=== PATIENT | female | born 1985 | race Two or more races ===

== ENCOUNTER 2025-06-09 18:24 | Emergency (ER) | payer MEDICAID, OTHER ==
[~2025-06-09] VITALS: Ht 170.2 cm; Wt 89.4 kg
[2025-06-09 18:45] VITALS: PULSE 58; RESP 22; O2SAT 98
[2025-06-09] MEDS: ONDANSETRON HCL 4 MG/2 ML VIAL IV ONE (19:00)
[2025-06-09] MEDS: HYDROmorphone HCL 2 MG/ML VL/or syr IV ONE (19:04)
[2025-06-09 19:10] VITALS: PULSE 96; RESP 24; TEMP 97.6; O2SAT 100
--- NOTE | 2025-06-09 19:24 | ED.PDOC ---
History of Present Illness HPI Comments 39 y/o F presents with friend for c/c of right shoulder and arm pain, with associated limited range of motion. Patient reports on history of previous right shoulder dislocation in the past and endorses on dislocating said shoulder, again, after working out with her friend at the gym, earlier, today. Denial of any numbness, tingling, or further associated symptoms. Chief Complaint: Upper Extremity Time Seen by MD: 18:45 Reviewed Notes: Nurses Notes, Medications, Allergies Allergies: Coded Allergies: NO KNOWN ALLERGIES (Unverified , 06/09/25) Information Source: Patient Mode of Arrival: Ambulatory Severity: Moderate Timing: Hours Duration: Since onset Prehospital treatment: None Past Medical History Past Medical History (Other): Previous right shoulder dislocation Surgical History: Denies all surgeries [employer] History: Denies all [employer] Hx Family History Family History: Reviewed,noncontributory to illness, No family hx of Cancer, No family hx of DM, No family hx of Heart lacey, No family hx of HTN, No family hx ofKidney lacey, No family hx of Liver lacey, No family hx of Lung lacey, No family hx of Stroke Social History Smoker: Non-Smoker Alcohol: Denies ETOH Use Drugs: Denies Drug Use Lives In: Home All Other Systems: Reviewed and Negative (Comprehensive systems review obtained and negative except for what is stated in the HPI.) Physical Exam General Appearance: Moderate Distress HEENT: Normal ENT Inspection, Pharynx Normal, TMs Normal Neck: Full Range of Motion, Non-Tender, Normal, Normal Inspection Respiratory: Chest Non-Tender, Lungs Clear, No Accessory Muscle Use, No Respiratory Distress, Normal Breath Sounds Cardiovascular: No Edema, No JVD, No Murmur, No Gallop, Normal Peripheral Pulses, Regular Rate/Rhythm Breast Exam: Deferred Gastrointestinal: No Organomegaly, Non Tender, No Pulsatile Mass, Normal Bowel Sounds, Soft Genitalia: Deferred Pelvic: Deferred Rectal: Deferred Extremities: Decreased range of motion (Right upper extremity) Musculoskeletal : Apperance: Normal Neurologic: Alert, No Motor Deficits, No Sensory Deficits Cerebellar Function: NOT DONE Reflexes: NOT DONE Skin: Normal Color Peripheral Pulses: 3+ Radial (R), 3+ Radial (L) Lymphatic: No Adenopathy Was a procedure done? Was a procedure done?: No Reduction Indication: Dislocation Sedation: Consents obtained, Sedation as ordered, Other (right shoulder ) Intra-articular anesthetic kathi: No Post-reduction x-ray show: Reduction, Good Alignment Informed consent obtained: Yes Risks/benefits/alt described: Yes Differential Dx Considerations may include: dislocation, sprain, contusion, fracture, among others X-Ray, Labs, Meds, VS Vital Signs Date Time Temp Pulse Resp B/P (MAP) Pulse Ox O2 Delivery O2 Flow Rate FiO2 06/09/25 20:10 62 27 100 4.0 102 14 100 62 100 06/09/25 19:10 96 24 100 Room Air* 0 21 06/09/25 19:10 97.6 96 24 152/84 (106) 100 97.6 06/09/25 19:04 58 22 152/84 06/09/25 18:45 98.6 58 22 98 98.6 06/09/25 18:45 58 22 98 Room Air* 0 21 06/09/25 18:26 97.4 75 16 122/71 97 97.4 Current Medications Medications (Trade) Dose Ordered Sig/Miguel Route Start Time Stop Time Status Last Admin Hydromorphone HCl (Dilaudid Injection) 2 mg ONCE ONCE IV 06/09/25 19:00 06/09/25 19:01 DC 06/09/25 19:04 [place] [address] Ph: [phone] DIAGNOSTIC IMAGING Diagnostic Imaging Report : [id number] Signed PATIENT: LYLE STRATTON ACCT: [id number] UNIT: [id number] : 1985 LOC: ER ROOM / BED: / AGE / SEX: 39 / F ADM STATUS: REG ER SERVICE 1834 ORDERING PHYSICIAN: JENIFER NUÑEZ MD PROCEDURE(s): RSHD2 - R SHOULDER 2+ VIEW XRAY REASON: SHOULDER PAIN, POSSIBLE DISLOCATION ORDER NUMBER(s): [id number], ACCESSION NUMBER(s): [id number] CLINICAL INDICATION: SHOULDER PAIN, POSSIBLE DISLOCATION TECHNIQUE: XY R SHOULDER 2+ VIEW XRAY Comparison: None FINDINGS/IMPRESSION: There is no evidence of acute fracture . Probable anterior dislocation of the shoulder joint. ATED BY: MATT BOLAÑOS MD DICTATED DATE/TIME: 06/09/251927 SIGNED BY: MATT BOLAÑOS MD SIGNED DATE/TIME: 06/09/251927 CC: Patient alert. Has a pain in the right shoulder. Deformity of the right shoulder. Vitals stable. Answering questions. Good pulses. X-ray initially done does show anterior dislocation. Placed back in place. Placed in his sling. Was given prescription of Motrin. Was told to follow up with her primary care physician. Was told to come back if there is any problem. Time of 1ST Reevaluation: 19:15 Reevaluation 1ST: Unchanged Patient Education/Counseling: Diagnosis, Treatment, Need For Follow Up Family Education/Counseling: No Family Present SEPSIS Sepsis Screen Date sepsis recognized/suspect: Jun 09, 2025 Time Sepsis recognized/suspect: 1825 Recent Procedure: No On Antibiotic Therapy: No Respiratory Rate >20: No Heart Rate >90: No Temp<36 C (96.8 F) or >38.3 C: No SBP <90 or MAP <65 mmHG: No New Acute Mental Status Change: No Is the patient on CPAP, BIPAP,: No Physician Orders R Shoulder 2+ View Xray (06/09/25 18:34) R Shoulder 1v Xray (06/09/25 20:09) Vital Signs Date Time Temp Pulse Resp B/P (MAP) Pulse Ox O2 Delivery O2 Flow Rate FiO2 06/09/25 20:10 62 27 100 4.0 102 14 100 62 100 06/09/25 19:10 96 24 100 Room Air* 0 21 06/09/25 19:10 97.6 96 24 152/84 (106) 100 97.6 06/09/25 19:04 58 22 152/84 06/09/25 18:45 98.6 58 22 98 98.6 06/09/25 18:45 58 22 98 Room Air* 0 21 06/09/25 18:26 97.4 75 16 122/71 97 97.4 Medications Medications Dose Ordered Sig/Miguel Route Start Time Stop Time Status Last Admin Dose Admin Hydromorphone HCl 2 mg ONCE ONCE IV 06/09/25 19:00 06/09/25 19:01 DC 06/09/25 19:04 Departure 1 Departure Time of Disposition: 20:49 Impression: Primary Impression: Shoulder dislocation Qualified Codes: S43.004A - Unspecified dislocation of right shoulder joint, initial encounter Disposition: HOME / SELF CARE / HOMELESS Condition: Good e-Prescriptions Ibuprofen Micronized (MOTRIN TABLET) 600 Mg Tb 600 MG PO TID PRN for 5 Days, #15 TAB *Black box warning-NSAIDS can increase risk of DE & hypertension, GI irritation, ulceration, bleed, perferation. Do not use post cardiac surgery. Use short duration/lowest effective dose. Prov: JENIFER NUÑEZ MD 06/09/25 Discharged With: Self Critical Care Note Critical Care Time?: No Stability Stability form required: No Heart Score Heart Score: Heart Score Response (Comments) Value History N/A 0 EKG N/A 0 Age N/A 0 Risk Factors N/A 0 Troponin N/A 0 Total 0 I personally scribed for JENIFER NUÑEZ MD ([email or web address]) on 06/09/25 at 19:24. Electronically submitted by Patrick Lora ([email or web address]). I personally scribed for JENIFER NUÑEZ MD ([email or web address]) on 06/09/25 at 19:42. Electronically submitted by Patrick Lora ([email or web address]). JENIFER NUÑEZ MD Jun 09, 2025 19:24
--- NOTE | 2025-06-09 19:30 | DVH ---
CLINICAL INDICATION: SHOULDER PAIN, POSSIBLE DISLOCATION TECHNIQUE: XY R SHOULDER 2+ VIEW XRAY Comparison: None FINDINGS/IMPRESSION: There is no evidence of acute fracture . Probable anterior dislocation of the shoulder joint.
[2025-06-09] MEDS: KETAMINE 50mg/ML 10ml Vial (500mg/10ml) IV ONE ×2 (19:45→20:52)
--- NOTE | 2025-06-09 20:42 | DVH ---
CLINICAL INDICATION: DISLOCATION TECHNIQUE: 1-view XY R SHOULDER 1V XRAY Comparison: XY R SHOULDER 2+ VIEW XRAY on DOS: 06/09/25 FINDINGS: See below. IMPRESSION: 1. Assessment limited by lack of orthogonal view. The right shoulder appears reduced, however alignme nt is incompletely assessed. No obvious fracture. 2. No other interval change from same day comparison exam.
[2025-06-09] MEDS ORDERED: IBU600T PO (20:51)
[2025-06-09 21:00] VITALS: BP 118/75; PULSE 81; RESP 16; O2SAT 100
== END 2025-06-09 21:40 | disposition home or self-care (01) ==
LOC: ER 18:24
DX: S43.004A Unspecified dislocation of right shoulder joint, initial encounter (principal); X58.XXXA Exposure to other specified factors, initial encounter; Y93.89 Activity, other specified; Y92.89 Other specified places as the place of occurrence of the external cause; Y99.8 Other external cause status
CPT/HCPCS: 23650; 73020; 73030; 96374; 99152; 99285; J1171